=== PATIENT | female | born 1990 | race Caucasian/White ===

== ENCOUNTER 2017-01-01 01:10 | Emergency (ER) | payer OTHER ==
[~2017-01-01] VITALS: Ht 165.1 cm; Wt 90.7 kg
[~2017-01-01 01:10] MED LIST: IBUP-727 PO
[2017-01-01 01:16] VITALS: Ht 165.1 cm; Wt 90.7 kg
[2017-01-01] MEDS ORDERED: LIDOCAINE 1% (MDV) 20 ML INJ SC ONE (02:00)
[2017-01-01] MEDS ORDERED: LIDOCAINE 4% CR TOP ONE (02:00)
--- NOTE | 2017-01-01 02:26 | RADRPT ---
PROCEDURE: XR Foot. CLINICAL INDICATION: Trauma, pain. TECHNIQUE: AP, lateral and oblique views of the left foot was obtained. The images were reviewed on a PACS workstation. COMPARISON: None. FINDINGS: There is a soft tissue avulsion injury of the distal first digit with diffuse soft tissue swelling. The bones of the foot appear intact, with no evidence of fracture, dislocation, or subluxation. The joint spaces are preserved. Bone mineralization is normal. IMPRESSION: 1. Soft tissue bulging injury of the distal first digit. 2. No acute fracture or dislocation. RPTAT: HRSR Physician Tee Date Time Electronically viewed and signed by Physician Tee on 01/01/2017 02:26 RR/
--- NOTE | 2017-01-01 02:41 | ERD ---
ER Documentation Chief Complaint Chief Complaint Left toe pain HPI The patient is a 26-year-old female who presents to the Emergency Department with complaint of partial avulsion of the left great toenail, and toe injury. The patient reports that she was out tonight, dancing salsa at a club, when her dancing partner stepped on her foot several times, causing a crushing injury and a partial avulsion of the nail from the nailbed. The nail is now somewhat rotated, but still partially attached. She presents to the ED requesting that the nail be removed, as it is almost all off. She rates her current pain as 3/ 10. Denies numbness, tingling, weakness of the distal extremity. Denies restricted range of motion. No other complaints at this time. ROS All systems reviewed and are negative except as per history of present illness. Medications Home Meds Reported Medications Ibuprofen (Motrin) 600 Mg Tablet, 600 MG PO PRN 11/05/10 Allergies Allergies: Coded Allergies: No Known Drug Allergies (Verified Allergy, Mild, 01/01/17) PMhx/Soc Medical and Surgical Hx: pt denies Medical Hx, pt denies Surgical Hx History of Surgery: No Anesthesia Reaction: No Hx Neurological Disorder: No Hx Respiratory Disorders: No Hx Cardiac Disorders: No Hx Psychiatric Problems: No Hx Miscellaneous Medical Probl: No Hx Alcohol Use: Yes (social) Hx Substance Use: No Hx Tobacco Use: No Smoking Status: Never smoker Physical Exam Vitals Vital Signs Date Time Temp Pulse Resp B/P Pulse Ox O2 Delivery O2 Flow Rate FiO2 01/01/17 01:16 97.9 98 18 144/74 98 Physical Exam Const: Well-developed, well-nourished, in no acute distress. Head: Atraumatic Eyes: Normal Conjunctiva ENT: Normal External Ears, Nose and Mouth. Neck: Supple. Full range of motion. Resp: Clear to auscultation bilaterally Cardio: Regular rate and rhythm Skin: No petechiae or rashes. No lacerations or abrasions. No ecchymosis. Ext: No clubbing, cyanosis, or edema. No tenderness to the left foot or toes. No gross osseous deformities. Partial avulsion and rotation of the left great toenail from the nailplate. No active bleeding. DP and PT pulses 2+. Capillary refill is less than 2 seconds. Neur: Awake and alert Psych: Cooperative. Appropriate. Results 24 hrs Current Medications Medications (Trade) Dose Ordered Sig/Justine Route PRN Reason Start Time Stop Time Status Last Admin Dose Admin Lidocaine (Xylocaine 1% (Mdv) 20 ml) 20 ml ONCE ONCE SC 01/01/17 02:00 01/01/17 02:01 DC Lidocaine (Lmx 4% Plus) 1 applic ONCE ONCE TOP 01/01/17 02:00 01/01/17 02:01 DC Bacitracin (Bacitracin Oint (Ud)) 1 applic ONCE ONCE TOP 01/01/17 03:00 01/01/17 03:00 DC 01/01/17 02:56 Procedures/MDM DIAGNOSTIC TESTS AND INTERPRETATION: PROCEDURE: XR Foot. CLINICAL INDICATION: Trauma, pain. TECHNIQUE: AP, lateral and oblique views of the left foot was obtained. The images were reviewed on a PACS workstation. COMPARISON: None. FINDINGS:There is a soft tissue avulsion injury of the distal first digit with diffuse soft tissue swelling. The bones of the foot appear intact, with no evidence of fracture, dislocation, or subluxation. The joint spaces are preserved. Bone mineralization is normal. IMPRESSION: 1. Soft tissue bulging injury of the distal first digit. 2. No acute fracture or dislocation. Physician Tee Date Time Electronically viewed and signed by Physician Tee on 01/01/2017 02 :26 PROCEDURAL NOTE: INDICATION: Crush injury with partially avulsed left great toenail. CONSENT: Consent was obtained from the patient prior to the procedure. Indications, risks and benefits were explained at length. PROCEDURAL SUMMARY: The patient was positioned appropriately. The site was prepared and cleansed with Betadine. LMX cream applied for 20 minutes. A digit block was performed, and the site was anesthetized with approximately 2.5 mL of 1% lidocaine without epinephrine. Normal saline was used for wound irrigation. The area was prepared and draped in the usual sterile manner with the toe exposed. The toenail was excised using needle drivers and scissors. The entire nail was removed. The patient tolerated the procedure well without complications. The wound was then dressed with bacitracin and sterile gauze. No nailbed laceration. Standard post procedure care was explained, and return precautions were given. MEDICAL DECISION MAKING: This is a 26-year-old female presenting to the Emergency Department with partial avulsion of the left great toenail s/p crush injury of the left toe when her dancing partner stepped on her foot. The patient 's toenail was removed. She tolerated the procedure well with no new complaints. The patient was neurovascularly intact prior to and status post procedure. Standard post-procedure care was explained to the patient at length. X-ray imaging with no acute fractures. At this time the patient in stable condition and therefore can be discharged home with strict return precautions for signs of infection, uncontrollable pain, or any form of worsening or deteriorating condition. The patient is advised to follow up in 2- 3 days with her primary medical provider for wound check, or to return to the ER sooner for any worsening symptoms. No indication for antibiotics. I shared my medical decision making and plan with the patient at length and in great detail and the patient verbally understands and agrees with the plan for further observation and care as an outpatient. At the time of discharge all questions were answered. Departure Diagnosis: Primary Impression: Toenail avulsion Encounter type: initial encounter Qualified Code: S91.209A - Avulsion of toenail, initial encounter Additional Impression: Crushing injury of left great toe Encounter type: initial encounter Qualified Code: S97.112A - Crushing injury of left great toe, initial encounter Condition: Stable Patient Instructions: Crush Injury, Foot/Toe, No Fracture, Nail Avulsion, Partial Additional Instructions: Call your primary care doctor TOMORROW for an appointment during the next 2-3 days.See the doctor sooner or return here if your condition worsens before your appointment time. GWYN PORTILLO PA-C Jan 01, 2017 02:41
[2017-01-01] MEDS ORDERED: BACITRACIN 0.9 GM OINT TOP ONE (03:00)
== END 2017-01-01 03:00 | disposition home or self-care (01) ==
LOC: FTE 01:10
DX: S91.209A Unspecified open wound of unspecified toe(s) with damage to nail, initial encounter (principal); S97.112A Crushing injury of left great toe, initial encounter; W52.XXXA Crushed, pushed or stepped on by crowd or human stampede, initial encounter; Y92.89 Other specified places as the place of occurrence of the external cause